=== PATIENT | female | born 1950 | race African-American/Black ===

== ENCOUNTER 2017-06-09 14:43 | Inpatient (IN) | payer MEDICARE, MEDICAID ==
[~2017-06-09] VITALS: Ht 170.2 cm; Wt 120.2 kg
[~2017-06-09 14:43] MED LIST: ASPI-1159 PO; CHOL20004 PO; CLIN300C11 PO; DIPH25CA83 PO; GABA-290 PO; LEVO200T8 PO; METF10002 PO; NAPR-681 PO; OMEP20CA10 PO; TRAM50TA3 PO
[2017-06-09 15:29] LABS: BASOPHILS % 1.1 % (0.0-2.0); EOSINOPHILS % 1.5 % (0.0-5.0); HEMOGLOBIN. 13.4 g/dL (12.0-16.0); LYMPHOCYTES % 33.2 % (20.0-50.0); MEAN CORPUSCULAR HEMOGLOBIN 27.1 pg (28.0-32.0); MEAN CORPUSCULAR VOLUME 78.9 fL (81.0-99.0); MEAN PLATELET VOLUME 9.3 fl (7.4-10.4); MONOCYTES % 6.6 % (2.0-8.0); NEUTROPHILS % 57.6 % (40.0-76.0); PLATELET 241 x1000/uL (130-400); RED BLOOD CELL COUNT 4.94 mill/uL (4.2-5.4)
[2017-06-09 15:34] LABS: PROTHROMBIN TIME 10.5 sec (9.4-11.6)
[2017-06-09 15:47] LABS: CARBON DIOXIDE 31 mEq/L (21-32); CHLORIDE 101 mEq/L (98-107); TROPONIN I 0.05 ng/mL (0.00-0.04)
[2017-06-09] MEDS ORDERED: ASPIRIN 325MG EC TABLET PO ONE (16:45)
[2017-06-09] MEDS ORDERED: MORPHINE SULFATE 4 MG/ML CPJ (NOT FOR IM USE) IV STA (20:23)
[2017-06-09] MEDS ORDERED: VISCOUS LIDOCAINE 2% 15 ML UDC PO STA (20:23)
[2017-06-09] MEDS ORDERED: DICYCLOMINE 10 MG/5 ML ORAL SYR PO STA (20:23)
[2017-06-09] MEDS ORDERED: MAGNESIUM/ALUMINUM HYDROXIDE/SIMETHICONE 30ML UDC PO STA (20:23)
[2017-06-09 21:00] VITALS: BP 124/80
[2017-06-09] MEDS ORDERED: ACETAMINOPHEN 325MG TABLET PO PRN (22:15)
[2017-06-09] MEDS ORDERED: ENOXAPARIN 40MG/0.4ML SYR SUBCUT SCH (22:15)
[2017-06-09] MEDS ORDERED: IPRATROPIUM/ALBUTEROL 0.5-3(2.5)MG/3ML NEB INH PRN (22:15)
[2017-06-09] MEDS ORDERED: GUAIFENESIN 200MG/10ML SUGAR FREE UDC PO PRN (22:15)
[2017-06-09] MEDS ORDERED: MAGNESIUM/ALUMINUM HYDROXIDE/SIMETHICONE 30ML UDC PO PRN (22:15)
[2017-06-09] MEDS ORDERED: CLONIDINE 0.1MG TABLET PO PRN (22:15)
[2017-06-09] MEDS: MORPHINE SULFATE 2 MG/ML CPJ (NOT FOR IM USE) IV PRN (23:32)
[2017-06-10] VITALS: BP 131/66
[2017-06-10] MEDS ORDERED: DEXTROSE 50% WATER 50ML SYRINGE IV PRN (01:15)
[2017-06-10 04:00] VITALS: BP 121/73
[2017-06-10] MEDS: MORPHINE SULFATE 2 MG/ML CPJ (NOT FOR IM USE) IV PRN (05:14)
[2017-06-10] MEDS: INSULIN LISPRO 100 UNITS/ML SUBCUT SCH ×4 (06:14→20:39)
[2017-06-10] MEDS: BLOOD SUGAR DIAGNOSTIC STRIP TEST SCH ×4 (06:14→20:36)
[2017-06-10 06:21] LABS: BASOPHILS % 0.4 % (0.0-2.0); EOSINOPHILS % 0.4 % (0.0-5.0); HEMATOCRIT. 38.2 % (36.0-48.0); HEMOGLOBIN. 13.3 g/dL (12.0-16.0); LYMPHOCYTES % 17.1 % (20.0-50.0); MEAN CORPUSCULAR HEMOGLOBIN 27.4 pg (28.0-32.0); MEAN CORPUSCULAR VOLUME 78.8 fL (81.0-99.0); MONOCYTES % 5.2 % (2.0-8.0); NEUTROPHILS % 76.9 % (40.0-76.0); PLATELET 220 x1000/uL (130-400); RED BLOOD CELL COUNT 4.85 mill/uL (4.2-5.4)
[2017-06-10 07:01] LABS: CARBON DIOXIDE 27 mEq/L (21-32); CHLORIDE 100 mEq/L (98-107); CREATINE KINASE 132 IU/L (26-192); CREATINE KINASE MB FRACTION 1.5 ng/mL (0.5-3.6); HDL CHOLESTEROL 59 mg/dL (40-59); LDL CHOLESTEROL 76 mg/dL (5-100); T4 FREE 0.78 ng/dL (0.76-1.46); TROPONIN I 0.04 ng/mL (0.00-0.04)
[2017-06-10 08:00] VITALS: BP 137/62
[2017-06-10] MEDS: ASPIRIN 81MG EC TABLET PO SCH (08:43)
[2017-06-10] MEDS: AMLODIPINE 10MG TABLET PO SCH (08:44)
[2017-06-10] MEDS: DOCUSATE SODIUM 100MG CAPSULE PO PRN ×2 (08:45→20:38)
[2017-06-10] MEDS ORDERED: ENOXAPARIN 30MG/0.3ML SYR SUBCUT SCH (09:00)
[2017-06-10] MEDS ORDERED: LACTULOSE 20G/30ML UDC PO SCH (09:30)
[2017-06-10] MEDS ORDERED: TRAMADOL 50MG TABLET PO PRN (09:30)
[2017-06-10] MEDS ORDERED: ASPIRIN 81MG EC TABLET PO SCH (09:45)
[2017-06-10] MEDS: ONDANSETRON HCL 4MG/2ML VIAL IV PRN (11:04)
[2017-06-10] MEDS: LEVOTHYROXINE SODIUM 200MCG TABLET PO SCH (11:05)
[2017-06-10] MEDS: OMEPRAZOLE 20MG CAPSULE EXTENDED RELEASE PO SCH (11:05)
[2017-06-10 15:23] LABS: CREATINE KINASE MB FRACTION 1.3 ng/mL (0.5-3.6); TROPONIN I 0.03 ng/mL (0.00-0.04)
[2017-06-10 16:00] VITALS: BP 147/67
[2017-06-10] MEDS: HYDROCODONE/ACETAMINOPHEN 5/325MG TABLET PO PRN (16:56)
[2017-06-10 20:00] VITALS: BP 131/71
[2017-06-10] MEDS: ENOXAPARIN 40MG/0.4ML SYR SUBCUT SCH (20:39)
[2017-06-10] MEDS: DIPHENHYDRAMINE 25MG CAPSULE PO SCH (20:39)
[2017-06-11] VITALS: BP 144/69
[2017-06-11] MEDS: HYDROCODONE/ACETAMINOPHEN 5/325MG TABLET PO PRN ×2 (03:22→09:31)
[2017-06-11] MEDS: ONDANSETRON HCL 4MG/2ML VIAL IV PRN (03:54)
[2017-06-11 04:00] VITALS: BP 114/55
[2017-06-11] MEDS: BLOOD SUGAR DIAGNOSTIC STRIP TEST SCH ×4 (06:01→21:00)
[2017-06-11] MEDS: LEVOTHYROXINE SODIUM 200MCG TABLET PO SCH (06:08)
[2017-06-11] MEDS: INSULIN LISPRO 100 UNITS/ML SUBCUT SCH ×4 (06:09→21:00)
[2017-06-11 08:00] VITALS: BP 123/61
[2017-06-11] MEDS: AMLODIPINE 10MG TABLET PO SCH (09:30)
[2017-06-11] MEDS: DOCUSATE SODIUM 100MG CAPSULE PO PRN (09:30)
[2017-06-11] MEDS: OMEPRAZOLE 20MG CAPSULE EXTENDED RELEASE PO SCH (09:30)
[2017-06-11] MEDS: ASPIRIN 81MG EC TABLET PO SCH (09:30)
[2017-06-11] MEDS: ENOXAPARIN 40MG/0.4ML SYR SUBCUT SCH ×2 (09:32→22:07)
[2017-06-11 11:39] VITALS: BP 108/52
[2017-06-11 15:39] VITALS: BP 117/68
[2017-06-11] MEDS: MORPHINE SULFATE 2 MG/ML CPJ (NOT FOR IM USE) IV PRN (16:14)
[2017-06-11 20:00] VITALS: BP 123/54
[2017-06-11] MEDS: DIPHENHYDRAMINE 25MG CAPSULE PO SCH (22:07)
[2017-06-12] VITALS: BP 116/57
[2017-06-12] MEDS: HYDROCODONE/ACETAMINOPHEN 5/325MG TABLET PO PRN ×3 (00:19→13:25)
[2017-06-12 04:00] VITALS: BP 106/53
[2017-06-12] MEDS: BLOOD SUGAR DIAGNOSTIC STRIP TEST SCH ×4 (05:59→20:51)
[2017-06-12] MEDS: LEVOTHYROXINE SODIUM 200MCG TABLET PO SCH (06:14)
[2017-06-12] MEDS: INSULIN LISPRO 100 UNITS/ML SUBCUT SCH ×4 (06:15→20:50)
[2017-06-12 06:25] LABS: BASOPHILS % 0.3 % (0.0-2.0); EOSINOPHILS % 0.7 % (0.0-5.0); HEMOGLOBIN. 11.9 g/dL (12.0-16.0); LYMPHOCYTES % 16.3 % (20.0-50.0); MEAN CORPUSCULAR HEMOGLOBIN 26.7 pg (28.0-32.0); MEAN CORPUSCULAR VOLUME 78.3 fL (81.0-99.0); MEAN PLATELET VOLUME 9.5 fl (7.4-10.4); MONOCYTES % 10.8 % (2.0-8.0); NEUTROPHILS % 71.9 % (40.0-76.0); PLATELET 199 x1000/uL (130-400); RED BLOOD CELL COUNT 4.48 mill/uL (4.2-5.4); RED CELL DISTRIBUTION WIDTH 16.9 % (11.6-14.6)
[2017-06-12 07:04] LABS: CHLORIDE 95 mEq/L (98-107)
[2017-06-12 07:09] LABS: CARBON DIOXIDE 35 mEq/L (21-32)
[2017-06-12 07:46] VITALS: BP 108/47
[2017-06-12] MEDS: ENOXAPARIN 40MG/0.4ML SYR SUBCUT SCH ×2 (08:19→20:30)
[2017-06-12] MEDS: AMLODIPINE 10MG TABLET PO SCH (08:19)
[2017-06-12] MEDS: ASPIRIN 81MG EC TABLET PO SCH (08:19)
[2017-06-12] MEDS: OMEPRAZOLE 20MG CAPSULE EXTENDED RELEASE PO SCH (08:19)
[2017-06-12] MEDS: ONDANSETRON HCL 4MG/2ML VIAL IV PRN (13:25)
[2017-06-12 16:20] VITALS: BP 108/52
[2017-06-12] MEDS: MORPHINE SULFATE 2 MG/ML CPJ (NOT FOR IM USE) IV PRN (19:45)
[2017-06-12 20:00] VITALS: BP 105/52
[2017-06-12] MEDS: DIPHENHYDRAMINE 25MG CAPSULE PO SCH (20:30)
[2017-06-13] VITALS: BP 103/51
[2017-06-13 04:00] VITALS: BP 110/65
[2017-06-13] MEDS: MORPHINE SULFATE 2 MG/ML CPJ (NOT FOR IM USE) IV PRN ×3 (06:12→19:42)
[2017-06-13] MEDS: LEVOTHYROXINE SODIUM 200MCG TABLET PO SCH (06:12)
[2017-06-13 06:57] LABS: BASOPHILS % 0.2 % (0.0-2.0); EOSINOPHILS % 0.5 % (0.0-5.0); HEMATOCRIT. 34.3 % (36.0-48.0); HEMOGLOBIN. 11.6 g/dL (12.0-16.0); LYMPHOCYTES % 12.8 % (20.0-50.0); MEAN CORPUSCULAR HEMOGLOBIN 26.7 pg (28.0-32.0); MEAN PLATELET VOLUME 10.3 fl (7.4-10.4); MONOCYTES % 9.2 % (2.0-8.0); NEUTROPHILS % 77.3 % (40.0-76.0); PLATELET 189 x1000/uL (130-400); RED BLOOD CELL COUNT 4.34 mill/uL (4.2-5.4); RED CELL DISTRIBUTION WIDTH 16.8 % (11.6-14.6)
[2017-06-13] MEDS: BLOOD SUGAR DIAGNOSTIC STRIP TEST SCH ×5 (07:29→20:40)
[2017-06-13] MEDS: INSULIN LISPRO 100 UNITS/ML SUBCUT SCH ×4 (07:29→20:40)
[2017-06-13 07:45] LABS: CHLORIDE 95 mEq/L (98-107)
[2017-06-13 07:54] LABS: CARBON DIOXIDE 31 mEq/L (21-32)
[2017-06-13 08:00] VITALS: BP 111/57
[2017-06-13] MEDS: AMLODIPINE 10MG TABLET PO SCH (08:22)
[2017-06-13] MEDS: ENOXAPARIN 40MG/0.4ML SYR SUBCUT SCH ×2 (08:22→20:33)
[2017-06-13] MEDS: ASPIRIN 81MG EC TABLET PO SCH (08:22)
[2017-06-13] MEDS: FAMOTIDINE 20MG TABLET PO SCH (08:22)
[2017-06-13 12:20] VITALS: BP 135/66
[2017-06-13] MEDS: HYDROCODONE/ACETAMINOPHEN 5/325MG TABLET PO PRN (12:28)
[2017-06-13 15:45] VITALS: BP 110/54
[2017-06-13 20:00] VITALS: BP 107/69
[2017-06-13] MEDS: DIPHENHYDRAMINE 25MG CAPSULE PO SCH (20:32)
[2017-06-14] VITALS: BP 105/74
[2017-06-14] MEDS: MORPHINE SULFATE 2 MG/ML CPJ (NOT FOR IM USE) IV PRN ×4 (01:14→20:30)
[2017-06-14 04:00] VITALS: BP 104/59
[2017-06-14] MEDS: HYDROCODONE/ACETAMINOPHEN 5/325MG TABLET PO PRN ×3 (04:19→17:30)
[2017-06-14] MEDS: LEVOTHYROXINE SODIUM 200MCG TABLET PO SCH (06:32)
[2017-06-14] MEDS: INSULIN LISPRO 100 UNITS/ML SUBCUT SCH ×4 (07:09→20:33)
[2017-06-14] MEDS: BLOOD SUGAR DIAGNOSTIC STRIP TEST SCH ×4 (07:09→20:34)
[2017-06-14 08:00] VITALS: BP 110/60
[2017-06-14] MEDS: FAMOTIDINE 20MG TABLET PO SCH (08:17)
[2017-06-14] MEDS: AMLODIPINE 10MG TABLET PO SCH (08:17)
[2017-06-14] MEDS: ASPIRIN 81MG EC TABLET PO SCH (08:18)
[2017-06-14] MEDS: ENOXAPARIN 40MG/0.4ML SYR SUBCUT SCH ×2 (08:19→20:02)
[2017-06-14 12:00] VITALS: BP 99/48
[2017-06-14 16:00] VITALS: BP 103/51
[2017-06-14] MEDS: DOCUSATE SODIUM 100MG CAPSULE PO PRN (17:30)
[2017-06-14 20:04] VITALS: BP 113/57
[2017-06-14] MEDS: DIPHENHYDRAMINE 25MG CAPSULE PO SCH (20:30)
[2017-06-15 00:17] VITALS: BP 119/65
[2017-06-15 04:14] VITALS: BP 114/52
[2017-06-15] MEDS ORDERED: MORPHINE SULFATE 2 MG/ML CPJ (NOT FOR IM USE) IV PRN ×2 (04:15→10:45)
[2017-06-15] MEDS: BLOOD SUGAR DIAGNOSTIC STRIP TEST SCH ×4 (06:16→20:53)
[2017-06-15] MEDS: INSULIN LISPRO 100 UNITS/ML SUBCUT SCH ×4 (06:16→21:05)
[2017-06-15] MEDS: LEVOTHYROXINE SODIUM 200MCG TABLET PO SCH (06:16)
[2017-06-15 07:24] LABS: BASOPHILS % 0.2 % (0.0-2.0); EOSINOPHILS % 1.9 % (0.0-5.0); HEMATOCRIT. 35.1 % (36.0-48.0); HEMOGLOBIN. 11.8 g/dL (12.0-16.0); LYMPHOCYTES % 22.1 % (20.0-50.0); MEAN CORPUSCULAR HEMOGLOBIN 26.6 pg (28.0-32.0); MEAN CORPUSCULAR VOLUME 78.8 fL (81.0-99.0); MEAN PLATELET VOLUME 9.9 fl (7.4-10.4); MONOCYTES % 10.6 % (2.0-8.0); NEUTROPHILS % 65.2 % (40.0-76.0); PLATELET 244 x1000/uL (130-400); RED BLOOD CELL COUNT 4.45 mill/uL (4.2-5.4)
[2017-06-15 08:00] VITALS: BP 120/60
[2017-06-15] MEDS ORDERED: SODIUM CHLORIDE 0.9% 1000ML BAG ONE (08:20)
[2017-06-15] MEDS ORDERED: BUPIVACAINE HCL 0.5% (5MG/ML) 50ML ONE (08:20)
[2017-06-15] MEDS ORDERED: SKIN ADHESIVE 0.7 GM EA TOP ONE (08:20)
[2017-06-15] MEDS: ASPIRIN 81MG EC TABLET PO SCH (08:25)
[2017-06-15] MEDS: AMLODIPINE 10MG TABLET PO SCH (08:25)
[2017-06-15] MEDS: FAMOTIDINE 20MG TABLET PO SCH (08:25)
[2017-06-15] MEDS: ENOXAPARIN 40MG/0.4ML SYR SUBCUT SCH ×2 (08:26→20:52)
[2017-06-15 08:36] LABS: CARBON DIOXIDE 37 mEq/L (21-32); CHLORIDE 96 mEq/L (98-107)
[2017-06-15] MEDS ORDERED: FENTANYL CITRATE/PF 50MCG/ML 2ML VIAL ONE (09:25)
[2017-06-15] MEDS ORDERED: MIDAZOLAM HCL 2 MG/2 ML VIAL ONE (09:26)
[2017-06-15] MEDS ORDERED: HYDROCODONE/ACETAMINOPHEN 5/325MG TABLET PO PRN ×2 (10:45)
[2017-06-15] MEDS ORDERED: ONDANSETRON HCL 4MG/2ML VIAL IV PRN ×2 (10:45→11:30)
[2017-06-15] MEDS ORDERED: CEFAZOLIN SODIUM 1000MG/VIAL ONE (11:08)
[2017-06-15] MEDS ORDERED: LIDOCAINE HCL 1% 20ML VIAL (Pyxis) INJ ONE (11:08)
[2017-06-15] MEDS ORDERED: SODIUM CHLORIDE 0.9% 10ML VIAL ONE (11:08)
[2017-06-15] MEDS ORDERED: DEXAMETHASONE 4MG/ML 1ML VIAL ONE (11:08)
[2017-06-15] MEDS ORDERED: NEOSTIGMINE METHYLSULFATE 1MG/ML 10 ML VIAL ONE (11:08)
[2017-06-15] MEDS ORDERED: GLYCOPYRROLATE 0.2 MG/ML 2ML VIAL ONE (11:08)
[2017-06-15] MEDS ORDERED: PROPOFOL 200MG/20ML VIAL IV ONE (11:08)
[2017-06-15] MEDS ORDERED: ROCURONIUM BROMIDE 10MG/ML VIAL 5ML IV ONE (11:08)
[2017-06-15] MEDS ORDERED: SUCCINYLCHOLINE CHLORIDE 200MG/10ML VIAL IV ONE (11:08)
[2017-06-15] MEDS ORDERED: ONDANSETRON HCL 4MG/2ML VIAL ONE (11:14)
[2017-06-15] MEDS ORDERED: MEPERIDINE HCL/PF 25MG/ML CPJ IV PRN (11:30)
[2017-06-15] MEDS ORDERED: LABETALOL HCL 20MG/4ML CARPUJECT IV PRN (11:30)
[2017-06-15] MEDS: DEXT 5%/0.45% NACL KCL 20MEQ/L 1,000 ML IV SCH ×2 (12:00→21:00)
[2017-06-15] MEDS: HYDROMORPHONE HCL/PF 2MG/ML CPJ IV PRN ×2 (13:38→15:07)
[2017-06-15 16:00] VITALS: BP 103/54
[2017-06-15 19:56] VITALS: BP 125/60
[2017-06-15] MEDS: MORPHINE SULFATE 4 MG/ML CPJ (NOT FOR IM USE) IV PRN ×2 (19:57→23:53)
[2017-06-15] MEDS: ONDANSETRON HCL 4MG/2ML VIAL IV PRN (20:18)
[2017-06-15] MEDS ORDERED: DIPHENHYDRAMINE 50MG CAPSULE PO SCH (21:00)
[2017-06-16] VITALS: BP 129/60
[2017-06-16 04:30] VITALS: BP 154/70
[2017-06-16] MEDS: MORPHINE SULFATE 4 MG/ML CPJ (NOT FOR IM USE) IV PRN ×2 (04:46→08:56)
[2017-06-16] MEDS: BLOOD SUGAR DIAGNOSTIC STRIP TEST SCH (06:47)
[2017-06-16] MEDS: LEVOTHYROXINE SODIUM 200MCG TABLET PO SCH (06:51)
[2017-06-16] MEDS: INSULIN LISPRO 100 UNITS/ML SUBCUT SCH (06:57)
[2017-06-16 08:00] VITALS: BP 120/54
[2017-06-16] MEDS: ASPIRIN 81MG EC TABLET PO SCH (08:54)
[2017-06-16] MEDS: FAMOTIDINE 20MG TABLET PO SCH (08:54)
[2017-06-16] MEDS: DEXT 5%/0.45% NACL KCL 20MEQ/L 1,000 ML IV SCH (08:54)
[2017-06-16] MEDS: AMLODIPINE 10MG TABLET PO SCH (08:55)
[2017-06-16] MEDS: ENOXAPARIN 40MG/0.4ML SYR SUBCUT SCH (08:55)
[2017-06-16 09:33] LABS: HEMATOCRIT 34.3 % (36.0-48.0); HEMOGLOBIN 11.4 g/dL (12.0-16.0); MEAN CORPUSCULAR HEMOGLOBIN 26.4 pg (28.0-32.0); MEAN CORPUSCULAR VOLUME 79.9 fL (81.0-99.0); PLATELET 264 x1000/uL (130-400); RED BLOOD CELL COUNT 4.29 mill/uL (4.2-5.4)
[2017-06-16 11:26] VITALS: BP 120/54
== END 2017-06-16 12:05 | disposition home or self-care (01) | DRG 418 ==
LOC: ER 15:07 → 8WST 18:11 → ENRESERV 18:27
PROVIDERS: ADMIT Hospitalist; ATTEND Hospitalist
PROC: 0FT44ZZ Resection of Gallbladder, Percutaneous Endoscopic Approach (ICD-10-PCS; principal; 2017-06-15 09:00)
DX: K81.0 Acute cholecystitis (principal); E44.1 Mild protein-calorie malnutrition; I10 Essential (primary) hypertension; Z68.41 Body mass index [BMI] 40.0-44.9, adult; M94.0 Chondrocostal junction syndrome [Tietze]; E87.6 Hypokalemia; E03.9 Hypothyroidism, unspecified; E66.9 Obesity, unspecified; F17.210 Nicotine dependence, cigarettes, uncomplicated; E11.9 Type 2 diabetes mellitus without complications; I25.10 Atherosclerotic heart disease of native coronary artery without angina pectoris; I25.2 Old myocardial infarction; I45.10 Unspecified right bundle-branch block; K59.00 Constipation, unspecified; M10.9 Gout, unspecified; Z82.49 Family history of ischemic heart disease and other diseases of the circulatory system; Z90.49 Acquired absence of other specified parts of digestive tract; Z90.710 Acquired absence of both cervix and uterus; Z98.51 Tubal ligation status; Z88.0 Allergy status to penicillin; Z79.82 Long term (current) use of aspirin; Z79.84 Long term (current) use of oral hypoglycemic drugs; Z79.899 Other long term (current) drug therapy; Z71.6 Tobacco abuse counseling
CPT/HCPCS: 36415; 71010; 73706; 74176; 76700; 78227; 80048; 80053; 80061; 82550; 82553; 82962; 83735; 83880; 84439; 84443; 84484; 85025; 85027; 85610; 88304; 93005; 93306; 93970; 99285; A4216; A9537; J0330; J0690; J1100; J1170; J1650; J1815; J2250; J2270; J2405; J2704; J2710; J3010; J3490; J7030; Q0163

== ENCOUNTER → 2017-10-26 | Outpatient (CLI) | payer MEDICARE, MEDICAID ==
[~2017-10-26] MED LIST changes: -CLIN300C11 PO; -NAPR-681 PO
== END | disposition home or self-care (01) ==
LOC: RAD 12:49
PROVIDERS: ATTEND Family Medicine
DX: M17.12 Unilateral primary osteoarthritis, left knee (principal)
CPT/HCPCS: 73562

== ENCOUNTER → 2017-11-30 | Outpatient (CLI) | payer MEDICARE, MEDICAID ==
[~2017-11-30] MED LIST changes: +LEVO125T8 PO; +METF-416 PO; -METF10002 PO
== END | disposition home or self-care (01) ==
LOC: CT 10:25
PROVIDERS: ATTEND Surgery
DX: K57.90 Diverticulosis of intestine, part unspecified, without perforation or abscess without bleeding (principal); Z98.890 Other specified postprocedural states; Z90.49 Acquired absence of other specified parts of digestive tract
CPT/HCPCS: 74176

== ENCOUNTER → 2017-12-31 | Outpatient (CLI) | payer MEDICARE, MEDICAID ==
[2017-12-31] VITALS (13 sets, daily range): BP systolic 105–148; BP diastolic 51–90
[~2017-12-31] VITALS: Ht 160 cm; Wt 112.5 kg
[~2017-12-31] MED LIST changes: +FENTANYL CITRATE/PF 50MCG/ML 2ML VIAL IV ONE; +FENTANYL CITRATE/PF 50MCG/ML 2ML VIAL ONE; +HYDROCODONE/ACETAMINOPHEN 5/325MG TABLET PO PRN; +IOHEXOL-300 100 ML BOTTLE ONE; -LEVO125T8 PO; +LIDOCAINE HCL 1% 20ML VIAL (Pyxis) INJ ONE; -METF-416 PO; +METF10002 PO; +SODIUM BICARBONATE 4% (2.4MEQ) 5ML VIAL IV ONE
[2017-12-31 07:58] LABS: BASOPHILS % 0.8 % (0.0-2.0); EOSINOPHILS % 0.6 % (0.0-5.0); HEMATOCRIT. 38.4 % (36.0-48.0); HEMOGLOBIN. 13.2 g/dL (12.0-16.0); LYMPHOCYTES % 16.1 % (20.0-50.0); MEAN CORPUSCULAR HEMOGLOBIN 26.6 pg (28.0-32.0); MEAN CORPUSCULAR VOLUME 77.2 fL (81.0-99.0); MEAN PLATELET VOLUME 9.5 fl (7.4-10.4); MONOCYTES % 8.1 % (2.0-8.0); NEUTROPHILS % 74.4 % (40.0-76.0); PLATELET 270 x1000/uL (130-400); RED BLOOD CELL COUNT 4.98 mill/uL (4.2-5.4); RED CELL DISTRIBUTION WIDTH 14.9 % (11.6-14.6)
[2017-12-31 08:07] LABS: INR 1.1; PROTHROMBIN TIME 11.5 sec (9.4-11.6)
[2017-12-31 08:43] LABS: CHLORIDE 98 mEq/L (98-107)
[2017-12-31 13:42] LABS: HEMATOCRIT 38.4 % (36.0-48.0); HEMOGLOBIN 13.2 g/dL (12.0-16.0)
== END | disposition home or self-care (01) ==
LOC: CT 07:32
PROVIDERS: ATTEND Surgery
DX: C78.7 Secondary malignant neoplasm of liver and intrahepatic bile duct (principal); C80.1 Malignant (primary) neoplasm, unspecified; K57.30 Diverticulosis of large intestine without perforation or abscess without bleeding; Z90.49 Acquired absence of other specified parts of digestive tract
CPT/HCPCS: 36415; 47000; 74178; 77012; 80048; 85014; 85018; 85025; 85610; 85730; 88307; 88313; J3490; Q9967; J3010; J7050

== ENCOUNTER 2018-02-07 01:52 | Emergency (ER) | payer MEDICARE, MEDICAID ==
[~2018-02-07] VITALS: Ht 162.6 cm; Wt 113.0 kg
[~2018-02-07 01:52] MED LIST changes: -ASPI-1159 PO; -FENTANYL CITRATE/PF 50MCG/ML 2ML VIAL IV ONE; -FENTANYL CITRATE/PF 50MCG/ML 2ML VIAL ONE; -HYDROCODONE/ACETAMINOPHEN 5/325MG TABLET PO PRN; -IOHEXOL-300 100 ML BOTTLE ONE; -LIDOCAINE HCL 1% 20ML VIAL (Pyxis) INJ ONE; -SODIUM BICARBONATE 4% (2.4MEQ) 5ML VIAL IV ONE
[2018-02-07] MEDS ORDERED: HYDROCODONE/ACETAMINOPHEN 10/325MG TABLET PO ONE (02:15)
[2018-02-07 04:52] VITALS: BP 132/76
== END 2018-02-07 04:53 | disposition home or self-care (01) ==
LOC: ER 02:01
DX: S82.401A Unspecified fracture of shaft of right fibula, initial encounter for closed fracture (principal); W01.0XXA Fall on same level from slipping, tripping and stumbling without subsequent striking against object, initial encounter; Y93.9 Activity, unspecified; Y92.9 Unspecified place or not applicable; M25.572 Pain in left ankle and joints of left foot; E05.90 Thyrotoxicosis, unspecified without thyrotoxic crisis or storm; E11.9 Type 2 diabetes mellitus without complications; F17.200 Nicotine dependence, unspecified, uncomplicated; I10 Essential (primary) hypertension; I25.2 Old myocardial infarction; Z88.0 Allergy status to penicillin; Z90.49 Acquired absence of other specified parts of digestive tract; Z98.51 Tubal ligation status; Z85.118 Personal history of other malignant neoplasm of bronchus and lung
CPT/HCPCS: 29505; 70450; 73502; 73610; 99284

== ENCOUNTER → 2018-02-15 | Outpatient (CLI) | payer MEDICARE, MEDICAID ==
[2018-02-15 17:29] LABS: BASOPHILS % 0.5 % (0.0-2.0); EOSINOPHILS % 0.2 % (0.0-5.0); HEMATOCRIT. 36.3 % (36.0-48.0); LYMPHOCYTES % 7.6 % (20.0-50.0); MEAN CORPUSCULAR HEMOGLOBIN 24.8 pg (28.0-32.0); MEAN CORPUSCULAR VOLUME 74.9 fL (81.0-99.0); MEAN PLATELET VOLUME 9.5 fl (7.4-10.4); MONOCYTES % 7.2 % (2.0-8.0); NEUTROPHILS % 84.5 % (40.0-76.0); PLATELET 274 x1000/uL (130-400); RED BLOOD CELL COUNT 4.85 mill/uL (4.2-5.4); RED CELL DISTRIBUTION WIDTH 17.2 % (11.6-14.6)
[2018-02-15 17:51] LABS: CHLORIDE 94 mEq/L (98-107)
== END | disposition home or self-care (01) ==
LOC: LAB 16:39
PROVIDERS: ATTEND Internal Medicine Hematology & Oncology
DX: C67.1 Malignant neoplasm of dome of bladder (principal); R79.89 Other specified abnormal findings of blood chemistry
CPT/HCPCS: 36415; 80053; 82378; 85025

== ENCOUNTER 2018-02-16 16:21 | Inpatient (IN) | payer MEDICARE, MEDICAID ==
[~2018-02-16] VITALS: Ht 160 cm; Wt 113.4 kg
[2018-02-16 17:49] LABS: BASOPHILS % 0.5 % (0.0-2.0); HEMATOCRIT. 36.6 % (36.0-48.0); HEMOGLOBIN. 12.3 g/dL (12.0-16.0); LYMPHOCYTES % 7.3 % (20.0-50.0); MEAN CORPUSCULAR HEMOGLOBIN 25.1 pg (28.0-32.0); MEAN CORPUSCULAR VOLUME 74.5 fL (81.0-99.0); MEAN PLATELET VOLUME 9.4 fl (7.4-10.4); NEUTROPHILS % 84.2 % (40.0-76.0); PLATELET 275 x1000/uL (130-400); RED BLOOD CELL COUNT 4.91 mill/uL (4.2-5.4); RED CELL DISTRIBUTION WIDTH 17.4 % (11.6-14.6)
[2018-02-16 17:52] LABS: CHLORIDE 93 mEq/L (98-107)
[2018-02-16] MEDS ORDERED: ONDANSETRON HCL 4MG/2ML VIAL IV STA (18:49)
[2018-02-16] MEDS ORDERED: SODIUM CHLORIDE 0.9% 1,000 ML IV ONE (18:49)
[2018-02-16] MEDS ORDERED: MORPHINE SULFATE 4 MG/ML CPJ (NOT FOR IM USE) IV STA (18:49)
[2018-02-16] MEDS ORDERED: FAMOTIDINE 20MG/2ML VIAL IV STA (18:49)
[2018-02-16 19:10] LABS: ETHANOL BLOOD < 10 mg/dL
[2018-02-16 19:14] LABS: INR 1.2; PROTHROMBIN TIME 12.8 sec (9.4-11.6)
[2018-02-16] MEDS ORDERED: DIPHENHYDRAMINE 50MG/ML VIAL IV ONE (19:30)
[2018-02-16] MEDS ORDERED: SODIUM CHLORIDE 0.9% 1000ML BAG (SEPSIS BOLUS) IV ONE (20:14)
[2018-02-16] MEDS ORDERED: LEVOFLOXACIN 750MG PREMIX 150 ML IV ONE (20:15)
[2018-02-16] MEDS ORDERED: ASPIRIN 325MG TABLET PO NR (22:00)
[2018-02-16] MEDS ORDERED: FENTANYL CITRATE/PF 50MCG/ML 2ML VIAL IV ONE (23:15)
[2018-02-16 23:18] LABS: CLARITY URINE CLOUDY (CLEAR); COLOR URINE DARK YELLOW (YELLOW); KETONES URINE NEGATIVE (NEGATIVE); LEUKOCYTE ESTERASE URINE TRACE (NEGATIVE); NITRITE URINE NEGATIVE (NEGATIVE); OCCULT BLOOD URINE NEGATIVE (NEGATIVE); PH URINE 5.5 (4.5-8.0); PROTEIN URINE NEGATIVE (NEGATIVE); SPECIFIC GRAVITY URINE 1.019 (1.005-1.030)
[2018-02-16 23:26] LABS: *AMPHETAMINES SCREEN URINE NEGATIVE (NEGATIVE); *BARBITURATES SCREEN URINE NEGATIVE (NEGATIVE); *BENZODIAZEPINES SCREEN URINE NEGATIVE (NEGATIVE)
[2018-02-16 23:27] LABS: *COCAINE SCREEN URINE NEGATIVE (NEGATIVE); CANNABINOID URINE SCREEN PRESUMTIVE POSITIVE (NEGATIVE); METHADONE URINE SCREEN NEGATIVE (NEGATIVE); OPIATES URINE SCREEN PRESUMTIVE POSITIVE (NEGATIVE); PHENCYCLIDINE URINE SCREEN NEGATIVE (NEGATIVE)
[2018-02-17 02:55] VITALS: BP 126/64
[2018-02-17 04:00] VITALS: BP 104/55
[2018-02-17] MEDS ORDERED: CLONIDINE 0.2MG TABLET PO PRN (05:00)
[2018-02-17] MEDS ORDERED: DEXTROSE 50% WATER 50ML SYRINGE IV PRN (05:00)
[2018-02-17] MEDS ORDERED: ACETAMINOPHEN 325MG TABLET PO PRN (05:00)
[2018-02-17] MEDS ORDERED: ZOLPIDEM TARTRATE 5MG TABLET PO PRN (05:00)
[2018-02-17] MEDS: DEXT 5%/0.45% NACL 1000ML 1,000 ML IV SCH ×2 (05:15→17:08)
[2018-02-17] MEDS: INSULIN LISPRO 100 UNITS/ML SUBCUT SCH ×4 (06:01→20:43)
[2018-02-17] MEDS: BLOOD SUGAR DIAGNOSTIC STRIP TEST SCH ×4 (06:01→20:43)
[2018-02-17 08:00] VITALS: BP 122/56
[2018-02-17 08:59] LABS: BASOPHILS % 0.4 % (0.0-2.0); EOSINOPHILS % 0.1 % (0.0-5.0); HEMATOCRIT. 29.3 % (36.0-48.0); HEMOGLOBIN. 9.6 g/dL (12.0-16.0); LYMPHOCYTES % 9.9 % (20.0-50.0); MEAN CORPUSCULAR HEMOGLOBIN 24.7 pg (28.0-32.0); MEAN CORPUSCULAR VOLUME 74.9 fL (81.0-99.0); MONOCYTES % 8.1 % (2.0-8.0); NEUTROPHILS % 81.5 % (40.0-76.0); PLATELET 217 x1000/uL (130-400); RED BLOOD CELL COUNT 3.91 mill/uL (4.2-5.4)
[2018-02-17] MEDS: HYDROMORPHONE HCL/PF 2MG/ML CPJ IV PRN (09:23)
[2018-02-17] MEDS: ENOXAPARIN 30MG/0.3ML SYR SUBCUT SCH ×2 (09:25→20:43)
[2018-02-17 09:41] LABS: CHLORIDE 103 mEq/L (98-107)
[2018-02-17 12:00] VITALS: BP 116/65
[2018-02-17 16:00] VITALS: BP 100/54
[2018-02-17] MEDS ORDERED: POTASSIUM CHLORIDE 20MEQ TABLET SR PO NR (16:40)
[2018-02-17 20:00] VITALS: BP 123/57
[2018-02-17] MEDS: HYDROCODONE/ACETAMINOPHEN 5/325MG TABLET PO PRN (20:38)
[2018-02-18] VITALS: BP 122/58
[2018-02-18] MEDS: HYDROCODONE/ACETAMINOPHEN 5/325MG TABLET PO PRN ×4 (03:21→20:45)
[2018-02-18 04:00] VITALS: BP 118/51
[2018-02-18] MEDS: BLOOD SUGAR DIAGNOSTIC STRIP TEST SCH ×4 (06:33→20:36)
[2018-02-18] MEDS: INSULIN LISPRO 100 UNITS/ML SUBCUT SCH ×3 (06:33→20:36)
[2018-02-18] MEDS: DEXT 5%/0.45% NACL 1000ML 1,000 ML IV SCH ×2 (07:40→20:48)
[2018-02-18 08:00] VITALS: BP 126/65
[2018-02-18] MEDS: ENOXAPARIN 30MG/0.3ML SYR SUBCUT SCH ×2 (08:15→20:46)
[2018-02-18 12:00] VITALS: BP 116/57
[2018-02-18 16:00] VITALS: BP 128/64
[2018-02-18] MEDS ORDERED: LEVO125T8 PO (19:30)
[2018-02-18 20:05] VITALS: BP 122/66
[2018-02-19] VITALS: BP 117/61
[2018-02-19] MEDS: HYDROCODONE/ACETAMINOPHEN 5/325MG TABLET PO PRN ×4 (00:37→21:09)
[2018-02-19 04:00] VITALS: BP 120/53
[2018-02-19] MEDS: BLOOD SUGAR DIAGNOSTIC STRIP TEST SCH ×4 (06:29→21:51)
[2018-02-19] MEDS: INSULIN LISPRO 100 UNITS/ML SUBCUT SCH ×4 (06:29→21:00)
[2018-02-19] MEDS: DEXT 5%/0.45% NACL 1000ML 1,000 ML IV SCH ×2 (07:03→20:58)
[2018-02-19 07:34] LABS: CHLORIDE 101 mEq/L (98-107)
[2018-02-19 07:48] VITALS: BP 103/53
[2018-02-19 08:11] LABS: BASOPHILS % 0.3 % (0.0-2.0); EOSINOPHILS % 0.5 % (0.0-5.0); HEMATOCRIT. 30.4 % (36.0-48.0); HEMOGLOBIN. 10.1 g/dL (12.0-16.0); LYMPHOCYTES % 11.4 % (20.0-50.0); MEAN CORPUSCULAR VOLUME 74.9 fL (81.0-99.0); MEAN PLATELET VOLUME 10.1 fl (7.4-10.4); MONOCYTES % 7.2 % (2.0-8.0); NEUTROPHILS % 80.6 % (40.0-76.0); PLATELET 249 x1000/uL (130-400); RED BLOOD CELL COUNT 4.05 mill/uL (4.2-5.4); RED CELL DISTRIBUTION WIDTH 17.6 % (11.6-14.6)
[2018-02-19] MEDS ORDERED: POTASSIUM CHLORIDE 20MEQ TABLET SR PO NR (09:15)
[2018-02-19] MEDS: OMEPRAZOLE 20MG CAPSULE EXTENDED RELEASE PO SCH (09:24)
[2018-02-19] MEDS: LEVOTHYROXINE SODIUM 125MCG TABLET PO SCH (09:24)
[2018-02-19] MEDS: ONDANSETRON 4MG ODT PO PRN (09:24)
[2018-02-19] MEDS: ENOXAPARIN 30MG/0.3ML SYR SUBCUT SCH ×2 (09:25→21:00)
[2018-02-19 11:53] VITALS: BP 130/59
[2018-02-19] MEDS: HYDROMORPHONE HCL/PF 2MG/ML CPJ IV PRN (14:35)
[2018-02-19] MEDS: LACTULOSE 20G/30ML UDC PO SCH (14:37)
[2018-02-19 16:00] VITALS: BP 124/64
[2018-02-19 20:00] VITALS: BP 135/59
[2018-02-19] MEDS ORDERED: PAMIDRONATE DISODIUM 90 MG in SODIUM CHLORIDE 0.9% 1,000 ML IV ONE (21:00)
[2018-02-20] VITALS: BP 112/70
[2018-02-20] MEDS: HYDROCODONE/ACETAMINOPHEN 5/325MG TABLET PO PRN ×3 (00:59→20:58)
[2018-02-20] MEDS: ONDANSETRON 4MG ODT PO PRN (01:14)
[2018-02-20 04:00] VITALS: BP 136/62
[2018-02-20] MEDS: INSULIN LISPRO 100 UNITS/ML SUBCUT SCH ×4 (06:12→20:55)
[2018-02-20] MEDS: BLOOD SUGAR DIAGNOSTIC STRIP TEST SCH ×4 (06:12→20:56)
[2018-02-20 06:38] LABS: BASOPHILS % 0.3 % (0.0-2.0); EOSINOPHILS % 0.3 % (0.0-5.0); HEMATOCRIT. 28.7 % (36.0-48.0); HEMOGLOBIN. 9.6 g/dL (12.0-16.0); LYMPHOCYTES % 10.5 % (20.0-50.0); MEAN CORPUSCULAR HEMOGLOBIN 25.2 pg (28.0-32.0); MEAN CORPUSCULAR VOLUME 75.1 fL (81.0-99.0); MEAN PLATELET VOLUME 9.7 fl (7.4-10.4); MONOCYTES % 8.1 % (2.0-8.0); NEUTROPHILS % 80.8 % (40.0-76.0); PLATELET 218 x1000/uL (130-400); RED BLOOD CELL COUNT 3.83 mill/uL (4.2-5.4); RED CELL DISTRIBUTION WIDTH 17.4 % (11.6-14.6)
[2018-02-20 06:54] LABS: CHLORIDE 102 mEq/L (98-107)
[2018-02-20 07:52] VITALS: BP 128/58
[2018-02-20] MEDS: ENOXAPARIN 30MG/0.3ML SYR SUBCUT SCH ×2 (08:56→20:51)
[2018-02-20] MEDS: LACTULOSE 20G/30ML UDC PO SCH (08:56)
[2018-02-20] MEDS: LEVOTHYROXINE SODIUM 125MCG TABLET PO SCH (08:57)
[2018-02-20] MEDS: OMEPRAZOLE 20MG CAPSULE EXTENDED RELEASE PO SCH (08:57)
[2018-02-20] MEDS: HYDROMORPHONE HCL/PF 2MG/ML CPJ IV PRN ×2 (10:06→16:55)
[2018-02-20] MEDS ORDERED: POTASSIUM CHLORIDE 20MEQ TABLET SR PO SCH (11:15)
[2018-02-20 12:00] VITALS: BP 126/55
[2018-02-20 16:12] VITALS: BP 112/63
[2018-02-20] MEDS: DEXT 5%/0.45% NACL 1000ML 1,000 ML IV SCH (16:55)
[2018-02-20 20:00] VITALS: BP 133/61
[2018-02-21] VITALS: BP 115/56
[2018-02-21 04:00] VITALS: BP 122/60
[2018-02-21] MEDS: HYDROMORPHONE HCL/PF 2MG/ML CPJ IV PRN ×3 (05:43→21:48)
[2018-02-21] MEDS: BLOOD SUGAR DIAGNOSTIC STRIP TEST SCH ×4 (06:50→21:55)
[2018-02-21] MEDS: INSULIN LISPRO 100 UNITS/ML SUBCUT SCH ×4 (06:51→21:00)
[2018-02-21 06:56] LABS: BASOPHILS % 0.6 % (0.0-2.0); EOSINOPHILS % 0.4 % (0.0-5.0); HEMATOCRIT. 28.4 % (36.0-48.0); HEMOGLOBIN. 9.5 g/dL (12.0-16.0); LYMPHOCYTES % 8.6 % (20.0-50.0); MEAN CORPUSCULAR HEMOGLOBIN 24.8 pg (28.0-32.0); MEAN CORPUSCULAR VOLUME 74.6 fL (81.0-99.0); MEAN PLATELET VOLUME 9.8 fl (7.4-10.4); MONOCYTES % 7.9 % (2.0-8.0); NEUTROPHILS % 82.5 % (40.0-76.0); PLATELET 217 x1000/uL (130-400); RED BLOOD CELL COUNT 3.81 mill/uL (4.2-5.4); RED CELL DISTRIBUTION WIDTH 17.6 % (11.6-14.6)
[2018-02-21 07:19] LABS: CHLORIDE 100 mEq/L (98-107)
[2018-02-21 08:00] VITALS: BP 117/56
[2018-02-21] MEDS: LACTULOSE 20G/30ML UDC PO SCH ×2 (09:00→10:02)
[2018-02-21] MEDS: HYDROCODONE/ACETAMINOPHEN 5/325MG TABLET PO PRN ×2 (09:20→19:40)
[2018-02-21] MEDS: ENOXAPARIN 30MG/0.3ML SYR SUBCUT SCH ×2 (10:02→22:00)
[2018-02-21] MEDS: FAMOTIDINE 20MG TABLET PO SCH ×2 (10:02→16:57)
[2018-02-21] MEDS: LEVOTHYROXINE SODIUM 125MCG TABLET PO SCH (10:44)
[2018-02-21] MEDS ORDERED: POTASSIUM CHLORIDE 20MEQ TABLET SR PO SCH (11:00)
[2018-02-21 12:00] VITALS: BP 114/47
[2018-02-21 16:00] VITALS: BP 120/50
[2018-02-21 19:34] VITALS: BP 142/62
[2018-02-21] MEDS: DEXT 5%/0.45% NACL 1000ML 1,000 ML IV SCH (21:55)
[2018-02-22] VITALS: BP 131/56
[2018-02-22] MEDS: HYDROMORPHONE HCL/PF 2MG/ML CPJ IV PRN ×2 (01:57→03:46)
[2018-02-22 03:42] VITALS: BP 132/66
[2018-02-22 06:03] LABS: BASOPHILS % 0.4 % (0.0-2.0); EOSINOPHILS % 0.4 % (0.0-5.0); HEMOGLOBIN. 9.4 g/dL (12.0-16.0); LYMPHOCYTES % 7.6 % (20.0-50.0); MEAN CORPUSCULAR HEMOGLOBIN 24.9 pg (28.0-32.0); MEAN CORPUSCULAR VOLUME 74.7 fL (81.0-99.0); MEAN PLATELET VOLUME 9.7 fl (7.4-10.4); MONOCYTES % 8.9 % (2.0-8.0); NEUTROPHILS % 82.7 % (40.0-76.0); PLATELET 208 x1000/uL (130-400); RED BLOOD CELL COUNT 3.76 mill/uL (4.2-5.4)
[2018-02-22] MEDS: INSULIN LISPRO 100 UNITS/ML SUBCUT SCH ×2 (06:04→12:40)
[2018-02-22] MEDS: BLOOD SUGAR DIAGNOSTIC STRIP TEST SCH ×2 (06:04→12:48)
[2018-02-22 06:27] LABS: CHLORIDE 100 mEq/L (98-107)
[2018-02-22] MEDS ORDERED: POTASSIUM CHLORIDE 20MEQ TABLET SR PO SCH (07:30)
[2018-02-22] MEDS ORDERED: HYDROMORPHONE HCL/PF 2MG/ML CPJ IV PRN (08:15)
[2018-02-22 08:59] VITALS: BP 134/62
[2018-02-22] MEDS: LACTULOSE 20G/30ML UDC PO SCH (09:59)
[2018-02-22] MEDS: FAMOTIDINE 20MG TABLET PO SCH (09:59)
[2018-02-22] MEDS: ENOXAPARIN 30MG/0.3ML SYR SUBCUT SCH (10:00)
[2018-02-22] MEDS: LEVOTHYROXINE SODIUM 125MCG TABLET PO SCH (10:01)
[2018-02-22 12:05] VITALS: BP 134/62
[2018-02-22 12:50] VITALS: BP 127/63
== END 2018-02-22 13:40 | disposition home or self-care (01) | DRG 637 ==
LOC: ER 17:41 → EDBEDREQSVC 22:48 → EDBEDREQ 23:29 → EDBEDREQTM 23:29 → EDBEDREQSVC 23:29 → ENRESERV 23:34 → CANRESERV 23:34 → 8WST 02-17 00:47 → EDBEDREQTM 02-17 00:51 → EDBEDREQ 02-17 00:51 → EDBEDREQSVC 02-17 00:51 → ENRESERV 02-17 01:32
PROVIDERS: ADMIT Internal Medicine; ATTEND Internal Medicine
DX: E11.649 Type 2 diabetes mellitus with hypoglycemia without coma (principal); G93.41 Metabolic encephalopathy; C78.7 Secondary malignant neoplasm of liver and intrahepatic bile duct; C78.00 Secondary malignant neoplasm of unspecified lung; E83.52 Hypercalcemia; E86.0 Dehydration; E05.00 Thyrotoxicosis with diffuse goiter without thyrotoxic crisis or storm; J45.909 Unspecified asthma, uncomplicated; I10 Essential (primary) hypertension; F17.200 Nicotine dependence, unspecified, uncomplicated; I25.10 Atherosclerotic heart disease of native coronary artery without angina pectoris; I25.2 Old myocardial infarction; Z79.84 Long term (current) use of oral hypoglycemic drugs; Z79.899 Other long term (current) drug therapy; Z90.49 Acquired absence of other specified parts of digestive tract; Z90.710 Acquired absence of both cervix and uterus; Z88.0 Allergy status to penicillin; Z72.89 Other problems related to lifestyle
CPT/HCPCS: 36415; 71045; 74176; 80048; 80053; 80305; 81003; 82962; 83605; 83690; 83880; 84443; 84484; 85025; 85610; 87040; 87086; 93005; 96361; 96365; 96375; 99291; G0482; J1170; J1200; J1650; J1956; J2270; J2430; J3010; J3490; J7030; Q0162